=== PATIENT | male | born 1970 | race Caucasian/White ===

== ENCOUNTER → 2021-08-06 | Outpatient (CLI) | payer BC ==
[~2021-08-06] MED LIST: APIDRA SOLOS100 U/ML SC; CEPHALEXIN500 M1 PO; LANTUS SOLOS100 U/ML SC; MIRALAX PA17 GM/Dose PO; MULTIPLE VITAMI1 CAP PO; NORCO 325 MG-51 TAB PO; ULTRAM 50MG TAB50 MG PO; [UNRECOGNIZED DRUG - OTHER] PO
== END ==
LOC: COL.RAD 15:45
DX: U07.1 COVID-19 (principal)